=== PATIENT | male | born 1975 | race Caucasian/White ===

== ENCOUNTER 2017-09-01 12:25 | Emergency (ER) | payer SELFPAY ==
[~2017-09-01] VITALS: Ht 180.3 cm; Wt 149.2 kg
--- NOTE | 2017-09-01 12:46 | ER Report ---
History and Physical Time Seen By MD: 12:45 Hx. of Stated Complaint: PATIENT IS A [employer] FROM [place] AND STARTED FEELING SHORT OF BREATH [place] FROM [place] HPI/ROS CHIEF COMPLAINT: short of breath HISTORY OF PRESENT ILLNESS: This is a 41 year old male. He has been having shortness of breath today, started as he was [place] He is from [place] and heading to [place]. He has no current chest pain or palpitations. He did have some indigestion last night and some pain in left shoulder, but that is gone. He took a Zantac last night prior to sleeping. He has a history of stress test and heart cath about 2 years ago and was told this was normal, but that he should "watch this". He is supposed to be on blood pressure medication, Lisinopril/HCTZ 05/08.5, but has been out of this medicine for quite some time. [place] in the past and never had problems with the elevation. REVIEW OF SYSTEMS: Constitutional: No fever or chills. Eyes: No vision changes. ENT: No sore throat. No congestion. Cardiovascular: No palpitations. Respiratory: No cough. Gastrointestinal: No abdominal pain. No nausea or vomiting. Genitourinary: No dysuria. Musculoskeletal: No back pain. Skin: No rashes. Neurological: No numbness. No weakness. Allergies: Coded Allergies: No Known Drug Allergies (Unverified , 09/01/17) Home Meds Active Scripts Lisinopril/Hydrochlorothiazide (LISINOPRIL-HCTZ 10-12.5 MG TAB) 1 Each Tablet, 1 EACH PO QDAY, #30 TAB 0 Refills Prov:YUE HAYNES MD 09/01/17 Reported Medications Lisinopril/Hydrochlorothiazide (LISINOPRIL-HCTZ 10-12.5 MG TAB) 1 Each Tablet, 1 EACH PO QDAY 09/01/17 Reviewed Nurses Notes: Yes Hx Substance Use Disorder: No Hx Alcohol Use: No Constitutional Vital Sign - Last 24 Hours 09/01/17 09/01/17 09/01/17 09/01/17 12:30 12:32 12:39 12:45 Temp 98.4 Pulse 110 Resp 24 B/P (MAP) 173/106 (128) 173/106 146/103 (117) 117/101 (106) Pulse Ox 95 09/01/17 09/01/17 09/01/17 09/01/17 12:55 13:00 13:04 13:15 Pulse 105 Resp 18 B/P (MAP) 137/96 (110) 152/105 (121) 140/104 (116) Pulse Ox 94 09/01/17 09/01/17 09/01/17 09/01/17 13:25 13:30 13:45 13:55 Pulse 105 Resp 12 35 B/P (MAP) 150/109 (123) 154/100 (118) Pulse Ox 93 89 09/01/17 09/01/17 09/01/17 09/01/17 14:00 14:05 14:15 14:34 Pulse 98 Resp 18 B/P (MAP) 140/82 (101) ???/??? (1665) 137/94 (108) Pulse Ox 91 09/01/17 09/01/17 09/01/17 09/01/17 14:35 14:45 15:00 15:05 Pulse 92 76 Resp 9 16 B/P (MAP) 129/85 (100) 134/85 (101) Pulse Ox 93 94 09/01/17 15:15 B/P (MAP) 126/83 (97) Physical Exam General Appearance: The patient is alert. No acute distress. Eyes: Pupils are equal, round. No pallor, injection or icterus. ENT: Mucous membranes are moist. Normal oral mucosa. Posterior oropharynx is normal. Neck: Supple and non tender. No lymphadenopathy. Respiratory: Lungs are clear to auscultation. Cardiovascular: Regular rate and rhythm. No murmurs, gallops or rubs. Normal capillary refill. No edema. Gastrointestinal: Abdomen is soft and non tender. Nondistended. Normal active bowel sounds. Neurological: Alert and oriented x3. No focal neurologic deficits Skin: Warm and dry. No rashes. Musculoskeletal: No tenderness in palpation of the cervical, thoracic and lumbar spine. DIFFERENTIAL DIAGNOSIS: After history and physical exam, differential diagnosis was considered for shortness of breath including but not limited to pulmonary infectious process, COPD, asthma, pulmonary embolus and congestive heart failure. Medical Decision Making Data Points Result Diagram: 09/01/17 1233 09/01/17 1233 Laboratory Hematology Test 09/01/17 12:33 09/01/17 13:05 Red Blood Count 4.45 M/uL (4.00-5.60) Mean Corpuscular Volume 88.8 fL (80.0-96.0) Mean Corpuscular Hemoglobin 30.9 pg (26.0-33.0) Mean Corpuscular Hemoglobin Concent 34.8 g/dL (32.0-36.0) Red Cell Distribution Width 13.5 % (11.5-14.5) Mean Platelet Volume 8.8 fL (7.2-11.1) Neutrophils (%) (Auto) 64.2 % (39.4-72.5) Lymphocytes (%) (Auto) 29.2 % (17.6-49.6) Monocytes (%) (Auto) 4.1 % (4.1-12.4) Eosinophils (%) (Auto) 2.0 % (0.4-6.7) Basophils (%) (Auto) 0.5 % (0.3-1.4) Nucleated RBC Relative Count (auto) 0.1 /100WBC Neutrophils # (Auto) 7.8 K/uL (2.0-7.4) Lymphocytes # (Auto) 3.5 K/uL (1.3-3.6) Monocytes # (Auto) 0.5 K/uL (0.3-1.0) Eosinophils # (Auto) 0.2 K/uL (0.0-0.5) Basophils # (Auto) 0.1 K/uL (0.0-0.1) Nucleated RBC Absolute Count (auto) 0.01 K/uL D-Dimer Quantitative (PE/DVT) 0.56 ug/ml (0-0.50) Sodium Level 142 mmol/L (137-145) Potassium Level 3.5 mmol/L (3.5-5.0) Chloride Level 105 mmol/L (98-107) Carbon Dioxide Level 26 mmol/L (22-30) Blood Urea Nitrogen 13 mg/dl (9-21) Creatinine 1.30 mg/dl (0.66-1.25) Glomerular Filtration Rate Calc > 60.0 Random Glucose 121 mg/dl (75-110) Calcium Level 8.9 mg/dl (8.4-10.2) Total Bilirubin 0.4 mg/dl (0.2-1.3) Aspartate Amino Transf (AST/SGOT) 34 U/L (0-35) Alanine Aminotransferase (ALT/SGPT) 48 U/L (0-56) Alkaline Phosphatase 94 U/L (0-126) Troponin I < 0.012 ng/ml B-Type Natriuretic Peptide 53 pg/ml (0-100) Total Protein 7.2 gm/dl (6.3-8.2) Albumin 3.7 g/dl (3.5-5.0) Influenza Virus Type A (PCR) Negative (NEGATIVE) Influenza Virus Type B (PCR) Negative (NEGATIVE) Chemistry Test 09/01/17 12:33 09/01/17 13:05 White Blood Count 12.1 k/uL (4.5-11.0) Red Blood Count 4.45 M/uL (4.00-5.60) Hemoglobin 13.7 g/dL (14.0-18.0) Hematocrit 39.5 % (42.0-52.0) Mean Corpuscular Volume 88.8 fL (80.0-96.0) Mean Corpuscular Hemoglobin 30.9 pg (26.0-33.0) Mean Corpuscular Hemoglobin Concent 34.8 g/dL (32.0-36.0) Red Cell Distribution Width 13.5 % (11.5-14.5) Platelet Count 209 K/uL (150-450) Mean Platelet Volume 8.8 fL (7.2-11.1) Neutrophils (%) (Auto) 64.2 % (39.4-72.5) Lymphocytes (%) (Auto) 29.2 % (17.6-49.6) Monocytes (%) (Auto) 4.1 % (4.1-12.4) Eosinophils (%) (Auto) 2.0 % (0.4-6.7) Basophils (%) (Auto) 0.5 % (0.3-1.4) Nucleated RBC Relative Count (auto) 0.1 /100WBC Neutrophils # (Auto) 7.8 K/uL (2.0-7.4) Lymphocytes # (Auto) 3.5 K/uL (1.3-3.6) Monocytes # (Auto) 0.5 K/uL (0.3-1.0) Eosinophils # (Auto) 0.2 K/uL (0.0-0.5) Basophils # (Auto) 0.1 K/uL (0.0-0.1) Nucleated RBC Absolute Count (auto) 0.01 K/uL D-Dimer Quantitative (PE/DVT) 0.56 ug/ml (0-0.50) Glomerular Filtration Rate Calc > 60.0 Calcium Level 8.9 mg/dl (8.4-10.2) Total Bilirubin 0.4 mg/dl (0.2-1.3) Aspartate Amino Transf (AST/SGOT) 34 U/L (0-35) Alanine Aminotransferase (ALT/SGPT) 48 U/L (0-56) Alkaline Phosphatase 94 U/L (0-126) Troponin I < 0.012 ng/ml B-Type Natriuretic Peptide 53 pg/ml (0-100) Total Protein 7.2 gm/dl (6.3-8.2) Albumin 3.7 g/dl (3.5-5.0) Influenza Virus Type A (PCR) Negative (NEGATIVE) Influenza Virus Type B (PCR) Negative (NEGATIVE) Coagulation Test 09/01/17 12:33 D-Dimer Quantitative (PE/DVT) 0.56 ug/ml EKG/Imaging EKG Interpretation 12 lead EKG: Rhythm: normal sinus rhythm, rate 99 Cabins: normal QRS: normal ST segments: normal Imaging CTA CHEST WW/O CNTR (PULM ANG) HISTORY: short of breath ADDITIONAL HISTORY: None. TECHNIQUE: CTA chest with intravenous contrast. Axial imaging acquired following administration of IV contrast timed for maximum opacification of the pulmonary arterial vasculature. Slab 3-D MIP reconstructed images were also created for further evaluation and interpretation. Reconstruction of the source data set includes multiplanar 2-D in the sagittal and coronal planes and 3-D reconstructed coronal slab MIP series. 3-D images were created by the technologist. Dose Lowering Technique One of the following dose optimization techniques was utilized in the performance of this exam: Automated exposure control; adjustment of the mA and/ or kV according to the patient's size; or use of an iterative reconstruction technique. Specific details can be referenced in the facility's radiology CT exam operational policy. CONTRAST: 100 mL Isovue-370 COMPARISON: None. FINDINGS: Lungs/pleura: There are mild dependent changes in the lower lung calvo. No evidence of pleural effusions. Heart/vessels: There is limited opacification of the distal vessels in the pulmonary arterial tree although no evidence of thrombi within the central pulmonary arterial tree Mediastinum/lymph nodes: Negative. Visualized upper abdomen: The spleen is incompletely imaged although appears to be prominent Bones/soft tissues: Mild levoconvex curvature to the lumbar spine. Additional findings: None IMPRESSION: There are mild dependent changes in lower lung calvo There is limited opacification of the distal vessels of the pulmonary arterial tree although no evidence of thrombi within the central pulmonary arterial tree Report Dictated By: Raquel Fonseca MD at 09/01/2017 2:52 PM ED Course/Re-evaluation Clinical Indication for ER IV: IV Access ED Course Patient given Metoprolol and aspirin. Blood pressure came down well. Workup was negative for causes of shortness of breath. Perhaps a combination of elevation and elevated blood pressure. He will follow-up with primary care on return home to [place]. Decision to Disposition Date: Sep 01, 2017 Decision to Disposition Time: 15:19 Depart Departure Latest Vital Signs Vital Signs Date Time Temp Pulse Resp B/P (MAP) Pulse Ox O2 Delivery O2 Flow Rate FiO2 09/01/17 15:15 126/83 (97) 09/01/17 15:05 76 16 94 09/01/17 12:32 98.4 Impression: Primary Impression: Shortness of breath Additional Impression: Hypertension Condition: Improved Disposition: HOME OR SELF-CARE New Scripts Lisinopril/Hydrochlorothiazide (LISINOPRIL-HCTZ 10-12.5 MG TAB) 1 Each Tablet 1 EACH PO QDAY, #30 TAB 0 Refills Prov: YUE HAYNES MD 09/01/17 Patient Instructions: Dyspnea (ED) Additional Instructions: Re-start taking your Lisinopril/Hydrochlorothiazide 10/12.5 once a day. Follow-up with your regular doctor in [place], you may need to discuss having another stress test. Symptoms could be partly due to the elevation. If symptoms improve as you get to lower elevation, then you will know this was the reason. Symptoms could be due to acid reflux, so you can start taking Zantac 150mg over the counter tablets twice a day until you see your doctor. If symptoms worsen, please stop and seek further medical care. Problem Qualifiers Additional Impression: Hypertension Hypertension type: essential hypertension Qualified Codes: I10 - Essential ( primary) hypertension YUE HAYNES MD Sep 01, 2017 12:46
[2017-09-01] MEDS ORDERED: LISI-351 PO ×2 (12:49→15:21)
[2017-09-01] MEDS ORDERED: ASPIRIN 81 MG CHEW PO ONE (13:00)
[2017-09-01] MEDS ORDERED: METOPROLOL TART 50 MG TAB PO ONE (13:00)
[2017-09-01 13:16] LABS: PLATELET COUNT, AUTOMATED 209 K/uL (150-450)
--- NOTE | 2017-09-01 13:31 | EKG ---
FACILITY: [facility] [place] PATIENT NAME: RIANA VAUGHAN : [id number] MR: [id number] V: [id number] EXAM DATE: ORDERING PHYSICIAN: YUE HAYNES TECHNOLOGIST: KIEL Jon Reason : RESPIRATORY Blood Pressure : / mmHG Vent. Rate : 099 BPM Atrial Rate : 099 BPM P-R Int : 182 ms QRS Dur : 094 ms QT Int : 364 ms P-R-T Axes : 052 072 031 degrees QTc Int : 467 ms Sinus rhythm No acute appearing findings No previous ECGs available Confirmed by RUTHY WHEAT ([id number] on 09/02/2017 5:35:10 AM Referred By: D[place]AS Confirmed By:RUTHY WHEAT
[2017-09-01] MEDS ORDERED: NS 0.9% 20 ML SDV 80 ML ONE (14:19)
[2017-09-01] MEDS ORDERED: IOPAMIDOL 76% 100 ML INFUS BTL 100 ML ONE (14:19)
--- NOTE | 2017-09-01 15:02 | RADIOLOGY IMAGING REPORT ---
FACILITY: [facility] [place] PATIENT NAME: Martinez Sanchez : 1975 MR: [id number] V: [id number] EXAM DATE: ORDERING PHYSICIAN: YUE HAYNES TECHNOLOGIST: Location: [facility] [place] Patient: Martinez Sanchez : 1975 Visit/Account:[id number] Date of Sevice: 09/01/2017 CTA CHEST WW/O CNTR (PULM ANG) HISTORY: short of breath ADDITIONAL HISTORY: None. TECHNIQUE: CTA chest with intravenous contrast. Axial imaging acquired following administration of IV contrast timed for maximum opacification of the pulmonary arterial vasculature. Slab 3-D MIP millie nstructed images were also created for further evaluation and interpretation. Reconstruction of the [facility] data set includes multiplanar 2-D in the sagittal and coronal planes and 3-D reconstructed xochitl nal slab MIP series. 3-D images were created by the technologist. Dose Lowering Technique One of the following dose optimization techniques was utilized in the performance of this exam: Autom ated exposure control; adjustment of the mA and/or kV according to the patient's size; or use of an i terative reconstruction technique. Specific details can be referenced in the facility's radiology C T exam operational policy. CONTRAST: 100 mL Isovue-370 COMPARISON: None. FINDINGS: Lungs/pleura: There are mild dependent changes in the lower lung calvo. No evidence of pleural eff usions. Heart/vessels: There is limited opacification of the distal vessels in the pulmonary arterial tree a lthough no evidence of thrombi within the central pulmonary arterial tree Mediastinum/lymph nodes: Negative. Visualized upper abdomen: The spleen is incompletely imaged although appears to be prominent Bones/soft tissues: Mild levoconvex curvature to the lumbar spine. Additional findings: None IMPRESSION: There are mild dependent changes in lower lung calvo There is limited opacification of the distal vessels of the pulmonary arterial tree although no evide nce of thrombi within the central pulmonary arterial tree Report Dictated By: Raquel Fonseca MD at 09/01/2017 2:52 PM Report E-Signed By: Raquel Fonseca MD at 09/01/2017 2:59 PM WSN:[email or web address]
[2017-09-01 15:15] VITALS: BP 126/83
== END 2017-09-01 15:37 | disposition home or self-care (01) ==
LOC: ER 12:43
DX: I10 Essential (primary) hypertension (principal); R06.02 Shortness of breath
CPT/HCPCS: 71275; 83880; 84484; 85025; 85379; 87502; 93005; 99284; J7050; Q9967; 82040; 82247; 82310; 82374; 82435; 82565; 82947; 84075; 84132; 84155; 84295; 84450; 84460; 84520